=== PATIENT | female | born 1980 | race African-American/Black ===

== ENCOUNTER 2016-12-18 15:40 | Emergency (ER) | payer OTHER ==
[~2016-12-18] VITALS: Ht 160 cm; Wt 59.0 kg
--- NOTE | ~2016-12-18 | CR173 ---
[facility] A Service of [facility] & [facility] [place] RADIOLOGY TEXT RESULTS PATIENT: NNEKA RIVERA LOCATION: CFTX : 78 UNIT #: [id number] AGE: [address]: Vane Henley APRN SEX: F ORDER DR: [id number] [facility] [address]. [place], [place] [address] [id number] MR#: [id number] #: [id number] NAME: NNEKA RIVERA : 1980 SEX: F STUDY DATE/TIME: 12/18/2016 16:00 UNIT: [facility] ROOM: STUDY DESCRIPTION: CR Knee 3 Views Rt Attending Physician: Vane Henley A.P.R.N. Ordering Physician: Vane Henley A.P.R.N. Primary Care Physician: Generic Doctor Not In System MEDICAL IMAGING REPORT This report is preliminary unless electronic signature is present EXAM Right knee INDICATIONS Right knee pain. Hit the knee against a player during a softball match. FINDINGS Three views of the right knee without comparison. No fracture or dislocation. Alignment is anatomic. IMPRESSION Negative right knee. Dictated by... Grzegorz Campa M.D. THIS IS AN ELECTRONICALLY VERIFIED REPORT Grzegorz Campa M.D. at 12/19/2016 8:11 AM MARSHA/alma TD: 12/19/2016 02:58 JOB #: [id number] MEDICAL IMAGING REPORT Page 1 of 1 COPY
== END 2016-12-18 17:38 | disposition home or self-care (01) ==
LOC: CED 15:40 → CFTX 15:40
DX: S93.401A Sprain of unspecified ligament of right ankle, initial encounter (principal); W03.XXXA Other fall on same level due to collision with another person, initial encounter; Y93.64 Activity, baseball; Y92.830 Public park as the place of occurrence of the external cause
CPT/HCPCS: 29505; 73562; 99283